=== PATIENT | female | born 1950 | race Caucasian/White ===

== ENCOUNTER 2018-08-30 12:53 | Outpatient (CLI) | payer MEDICARE | END 2018-08-30 23:59 | disposition home or self-care (01) | LOC: CFH 12:53 | PROVIDERS: ATTEND Nurse Practitioner Family | DX: N63.10 Unspecified lump in the right breast, unspecified quadrant (principal); R59.0 Localized enlarged lymph nodes | CPT/HCPCS: 76641; 77066; G0279; 88305; 88341; 88342; 88360 ==

== ENCOUNTER 2018-08-31 11:55 | Outpatient (CLI) | payer MEDICARE ==
[2018-08-31] MEDS ORDERED: SODIUM BICARBONATE 4.0%, 5ML ONE (12:30)
[2018-08-31] MEDS ORDERED: LIDOCAINE 1%-EPI 1:100K, 20ML ONE (12:30)
[2018-08-31] MEDS ORDERED: LIDOCAINE 1%, 20ML ONE (12:30)
== END 2018-08-31 23:59 | disposition home or self-care (01) ==
LOC: CFH 11:55
PROVIDERS: ATTEND Nurse Practitioner Family
DX: C50.811 Malignant neoplasm of overlapping sites of right female breast (principal); C77.3 Secondary and unspecified malignant neoplasm of axilla and upper limb lymph nodes; Z17.0 Estrogen receptor positive status [ER+]
CPT/HCPCS: 19083; 38505; 77065; J3490; 19285; 76942

== ENCOUNTER → 2018-09-13 | Outpatient (CLI) | payer MEDICARE | END | disposition home or self-care (01) | LOC: PETCFH 12:11 | PROVIDERS: ATTEND Surgery | DX: C79.51 Secondary malignant neoplasm of bone (principal); C77.3 Secondary and unspecified malignant neoplasm of axilla and upper limb lymph nodes; C79.89 Secondary malignant neoplasm of other specified sites; C50.911 Malignant neoplasm of unspecified site of right female breast; M19.011 Primary osteoarthritis, right shoulder; M16.0 Bilateral primary osteoarthritis of hip; K44.9 Diaphragmatic hernia without obstruction or gangrene; K57.30 Diverticulosis of large intestine without perforation or abscess without bleeding; M25.411 Effusion, right shoulder; N63.10 Unspecified lump in the right breast, unspecified quadrant | CPT/HCPCS: 78815; A9552 ==

== ENCOUNTER 2018-09-26 13:51 | Day surgery (SDC) | payer MEDICARE ==
[2018-09-25 11:03] LABS: ALBUMIN 3.4 g/dL (3.4-5.0); ANION GAP 10 mmol/L (5-15); CALCIUM 9.3 mg/dL (8.5-10.1); CHLORIDE 107 mmol/L (98-107)
[2018-09-25 11:06] LABS: ALANINE AMINOTRANSFERASE 21 U/L (12-78); ALKALINE PHOSPHATASE 113 U/L (45-117); BILIRUBIN,TOTAL 0.4 mg/dL (0.2-1.0); CREATININE 0.82 mg/dL (0.55-1.02); TOTAL PROTEIN 7.4 g/dL (6.4-8.2)
[~2018-09-26] VITALS: Ht 162.6 cm; Wt 73.7 kg
[~2018-09-26 13:51] MED LIST: ACET-1600 PO; LOSA25TA25 PO; ONDA8TAB9 PO; PROC10TA78 PO
[2018-09-26] MEDS ORDERED: LACTATED RINGERS 1,000 ML IV SCH (14:26)
[2018-09-26] MEDS ORDERED: GABAPENTIN 300 MG CAPSULE PO ONE (14:30)
[2018-09-26] MEDS ORDERED: ONDANSETRON ODT 8 MG PO ONE (14:30)
[2018-09-26] MEDS ORDERED: ACETAMINOPHEN 500 MG TABLET PO ONE (14:30)
[2018-09-26] MEDS ORDERED: SCOPOLAMINE PATCH, 1.5MG PATCH.TD72 TD ONE (14:30)
[2018-09-26 14:32] VITALS: BP 168/98
[2018-09-26] MEDS ORDERED: FENTANYL PF 100 MCG/2ML ONE (15:05)
[2018-09-26] MEDS ORDERED: BUPIVACAINE/EPI 0.5% 1:200K INFIL ONE (16:07)
[2018-09-26] MEDS ORDERED: PROPOFOL 10 MG/ML, 20ML ONE (16:19)
[2018-09-26] MEDS ORDERED: ONDANSETRON 2MG/ML, 2ML ONE (16:19)
[2018-09-26] MEDS ORDERED: DEXAMETHASONE 4 MG/ML, 1ML ONE (16:19)
[2018-09-26] MEDS ORDERED: CEFAZOLIN 1,000 MG ONE (16:19)
[2018-09-26] MEDS ORDERED: ONDANSETRON 2MG/ML, 2ML IV PRN (16:30)
[2018-09-26] MEDS ORDERED: PROMETHAZINE 25 MG/ML, 1ML IV PRN (16:30)
[2018-09-26] MEDS ORDERED: LABETALOL 5MG/ML, 20ML IV PRN (16:30)
[2018-09-26] MEDS ORDERED: MIDAZOLAM 1 MG/ML, 2ML IV PRN (16:30)
[2018-09-26] MEDS ORDERED: FENTANYL PF 100 MCG/2ML IV PRN (16:30)
[2018-09-26] MEDS ORDERED: hydrALAzine 20 MG/ML, 1ML IV PRN (16:30)
[2018-09-26] MEDS ORDERED: ALBUTEROL/IPRATROPIUM 2.5MG/0.5MG, 3 ML NPPB PRN (16:30)
[2018-09-26] MEDS ORDERED: MEPERIDINE/PF 25MG/0.5ML IVPush PRN (16:30)
[2018-09-26] MEDS ORDERED: OXYcodone 5 MG/5 ML ORAL.SOL UDC PO PRN (16:30)
[2018-09-26] MEDS ORDERED: OXYcodone 5 MG/5 ML ORAL.SOL UDC ONE (16:45)
[2018-09-27] MEDS ORDERED: BUPIVACAINE/EPI 0.5% 1:200K ONE (11:54)
[2018-09-27] MEDS ORDERED: HEPARIN 1,000 UNITS/ML, 10ML ONE (11:54)
== END 2018-09-26 19:05 | disposition home or self-care (01) ==
LOC: OR 13:51
PROVIDERS: ATTEND Surgery
DX: Z45.2 Encounter for adjustment and management of vascular access device (principal); C50.911 Malignant neoplasm of unspecified site of right female breast; I10 Essential (primary) hypertension; J45.909 Unspecified asthma, uncomplicated; Z98.890 Other specified postprocedural states; Z72.89 Other problems related to lifestyle
CPT/HCPCS: 36415; 36561; 71045; 77001; 80053; 93005; C1788; J0690; J1100; J2405; J2704; J3010; J7120; Q0162; J1644